=== PATIENT | female | born 1980 | race African-American/Black ===

== ENCOUNTER 2020-07-05 17:42 | Outpatient (CLI) | payer OTHER | END 2020-07-05 17:43 | disposition critical access hospital (66) | LOC: EMS 17:42 | PROVIDERS: ATTEND Surgery | DX: R20.0 Anesthesia of skin (principal); R51.9 Headache, unspecified | CPT/HCPCS: A0425; A0429 ==

== ENCOUNTER 2020-07-05 18:09 | Emergency (ER) | payer OTHER ==
--- NOTE | 2020-07-05 18:39 | ED Physician Documentation ---
History of Present Illness - Stated complaint Stated Complaint: L SIDE NUMBNESS - Chief complaint Chief Complaint: Neuro - History obtained from History obtained from: Patient - History of Present Illness Timing: Enter time (symptoms began at 5 pm) - Additonal information Additional information: 40-year-old female presents to the emergency department for evaluation of acute onset headache with left-sided weakness and numbness. Symptoms began at 5 PM. Patient reports that she was cooking chicken in the kitchen felt a sudden headache and then began to feel fullness in her face left arm and left leg. She does have a history of hypertension but currently untreated secondary to lack of refills. She did take a cannabis gummy which was new for her. She denies diplopia ,abdominal pain, chest pain, or shortness of breath. She has no personal history of CVA or stroke but there is a strong FH of CVA/CAD. Review of Systems Constitutional: reports: Reviewed and negative Eyes: denies: Loss of vision, Decreased vision, Photophobia Ears: reports: Reviewed and negative Throat: reports: Reviewed and negative Cardiac: reports: Reviewed and negative Respiratory: reports: Reviewed and negative GI: reports: Reviewed and negative : reports: Reviewed and negative Skin: reports: Reviewed and negative Musculoskeletal: reports: Reviewed and negative Neurologic: reports: Focal weakness, Numbness, Headache. denies: Difficulty speaking, Near syncope, Syncope, Confused, Altered mental status, Head injury, LOC Psychiatric: reports: Reviewed and negative PD PAST MEDICAL HISTORY - Present Medications Home Medications: Ambulatory Orders Medication Instructions Recorded Confirmed Bictegrav/Emtricit/Tenofov Ala 1 each PO 07/05/20 07/05/20 [Biktarvy 50-200-25 mg Tablet] Montelukast [Singulair] 10 mg PO QPM 07/05/20 07/05/20 - Allergies Allergies/Adverse Reactions: Allergies Allergy/AdvReac Type Severity Reaction Status Date / Time iodine Allergy Hives Verified 07/05/20 20:30 PD ED PE EXPANDED - General General: Alert, No acute distress - Neck Neck: Supple w/out meningeal sx. No: Adenopathy - Cardiac Cardiac: Tachy, Radial strong equal, Pedal strong equal, Cap refill < 2 sec. No: Abnormal Rate, Murmur Present - Respiratory Respiratory: Clear to ausultation sunita. No: Distress, Labored - Abdomen Abdomen: Normal Bowel sounds. No: Tender to palpation - Derm Derm: Normal color, Warm and dry. No: Rash, Petecchiae, Purpura - Extremities Extremities: Normal, Pedal edema bilateral. No: Deformity, Tenderness - Neuro Neuro: Alert and Oriented X 3, Abnormal sensation (left face numbness), Normal finger nose (dysarthria with left arm; weakness left arm,left leg. Pronator drift left arm), Normal speech. No: Nystagmus - GCS Eye Opening: Spontaneous Motor: Obeys Commands Verbal: Oriented Total: 15 Results - Vitals Vitals: Vital Signs - 24 hr 07/05/20 07/05/20 07/05/20 18:12 19:36 19:52 Temperature 36.9 C Heart Rate 84 90 93 Respiratory 16 20 17 Rate Blood Pressure 160/90 H 155/96 H 157/91 H O2 Saturation 100 98 96 07/05/20 07/05/20 07/05/20 20:14 20:34 21:00 Temperature 36.8 C Heart Rate 90 89 93 Respiratory 19 17 18 Rate Blood Pressure 155/88 H 157/90 H 162/99 H O2 Saturation 97 95 100 Oxygen O2 Source Room air - EKG (time done) 1818 Rate: Rate (enter#) (100) Rhythm: Sinus tachycardia Cove: Normal Intervals: Normal NE QRS: Normal Ischemia: Non specific changes Compare to prior EKG: Old EKG unavailable Computer interpretation: Agree with computer - Labs Labs: Laboratory Tests 07/05/20 07/05/20 07/05/20 19:13 19:13 19:13 WBC 8.8 RBC 4.08 L Hgb 12.3 Hct 36.5 L MCV 89.5 MCH 30.1 MCHC 33.7 RDW 12.7 Plt Count 307 MPV 10.1 Neut # (Auto) 5.9 Lymph # (Auto) 2.2 Lake # (Auto) 0.6 Eos # (Auto) 0.0 Baso # (Auto) 0.0 Absolute Nucleated RBC 0.00 Nucleated RBC % 0.0 PT INR Sodium 134 L Potassium 3.3 L Chloride 100 L Carbon Dioxide 24 Anion Gap 10.0 BUN 12 Creatinine 0.8 Estimated GFR (MDRD) 96 Glucose 108 H Calcium 9.1 Total Bilirubin 0.6 AST 14 ALT 12 Alkaline Phosphatase 73 Troponin I High Sens < 2.3 L Total Protein 8.0 Albumin 4.0 Globulin 4.0 Albumin/Globulin Ratio 1.0 Lipase 24 Serum HCG, Qual Urine Color Urine Clarity Urine pH Ur Specific [place] Urine Protein Urine Glucose (UA) Urine Ketones Urine Occult Blood Urine Nitrite Urine Bilirubin Urine Urobilinogen Ur Leukocyte Esterase Urine RBC Urine WBC Ur Squamous Epith Cells Urine Bacteria Ur Microscopic Review Urine Culture Comments Urine HCG, Qual Nasal Adenovirus (PCR) Nasal B. parapertussis DNA (PCR) Nasal Coronavir 229E PCR Nasal Coronavir HKU1 PCR Nasal Coronavir NL63 PCR Nasal Coronavir OC43 PCR Nasal Enterovir/Rhinovir PCR Nasal Influenza B PCR Nasal Influenza A PCR Nasal Parainfluen 1 PCR Nasal Parainfluen 2 PCR Nasal Parainfluen 3 PCR Nasal Parainfluen 4 PCR Nasal RSV (PCR) Nasal B.pertussis DNA PCR Nasal C.pneumoniae (PCR) Eliu Human Metapneumo PCR Nasal M.pneumoniae (PCR) Nasal SARS-CoV-2 (PCR) Urine Opiates Screen Ur Oxycodone Screen Urine Methadone Screen Ur Propoxyphene Screen Ur Barbiturates Screen Ur Tricyclics Screen Ur Phencyclidine Scrn Ur Amphetamine Screen U Methamphetamines Scrn U Benzodiazepines Scrn Urine Cocaine Screen U Cannabinoids Screen 07/05/20 07/05/20 07/05/20 19:13 19:13 19:30 WBC RBC Hgb Hct MCV MCH MCHC RDW Plt Count MPV Neut # (Auto) Lymph # (Auto) Lake # (Auto) Eos # (Auto) Baso # (Auto) Absolute Nucleated RBC Nucleated RBC % PT 12.6 INR 1.1 Sodium Potassium Chloride Carbon Dioxide Anion Gap BUN Creatinine Estimated GFR (MDRD) Glucose Calcium Total Bilirubin AST ALT Alkaline Phosphatase Troponin I High Sens Total Protein Albumin Globulin Albumin/Globulin Ratio Lipase Serum HCG, Qual NEGATIVE Urine Color LIGHT YELLOW Urine Clarity CLEAR Urine pH 6.0 Ur Specific [place] <=1.005 Urine Protein NEGATIVE Urine Glucose (UA) NEGATIVE Urine Ketones NEGATIVE Urine Occult Blood SMALL Urine Nitrite NEGATIVE Urine Bilirubin NEGATIVE Urine Urobilinogen 0.2 (NORMAL) Ur Leukocyte Esterase NEGATIVE Urine RBC 6-10 H Urine WBC 4-5 Ur Squamous Epith Cells FEW Squamous Urine Bacteria None Seen Ur Microscopic Review INDICATED Urine Culture Comments NOT INDICATED Urine HCG, Qual Nasal Adenovirus (PCR) Nasal B. parapertussis DNA (PCR) Nasal Coronavir 229E PCR Nasal Coronavir HKU1 PCR Nasal Coronavir NL63 PCR Nasal Coronavir OC43 PCR Nasal Enterovir/Rhinovir PCR Nasal Influenza B PCR Nasal Influenza A PCR Nasal Parainfluen 1 PCR Nasal Parainfluen 2 PCR Nasal Parainfluen 3 PCR Nasal Parainfluen 4 PCR Nasal RSV (PCR) Nasal B.pertussis DNA PCR Nasal C.pneumoniae (PCR) Eliu Human Metapneumo PCR Nasal M.pneumoniae (PCR) Nasal SARS-CoV-2 (PCR) Urine Opiates Screen NEGATIVE Ur Oxycodone Screen NEGATIVE Urine Methadone Screen NEGATIVE Ur Propoxyphene Screen NEGATIVE Ur Barbiturates Screen NEGATIVE Ur Tricyclics Screen NEGATIVE Ur Phencyclidine Scrn NEGATIVE Ur Amphetamine Screen NEGATIVE U Methamphetamines Scrn NEGATIVE U Benzodiazepines Scrn NEGATIVE Urine Cocaine Screen NEGATIVE U Cannabinoids Screen POSITIVE H 07/05/20 07/05/20 19:30 20:05 WBC RBC Hgb Hct MCV MCH MCHC RDW Plt Count MPV Neut # (Auto) Lymph # (Auto) Lake # (Auto) Eos # (Auto) Baso # (Auto) Absolute Nucleated RBC Nucleated RBC % PT INR Sodium Potassium Chloride Carbon Dioxide Anion Gap BUN Creatinine Estimated GFR (MDRD) Glucose Calcium Total Bilirubin AST ALT Alkaline Phosphatase Troponin I High Sens Total Protein Albumin Globulin Albumin/Globulin Ratio Lipase Serum HCG, Qual Urine Color Urine Clarity Urine pH Ur Specific [place] Urine Protein Urine Glucose (UA) Urine Ketones Urine Occult Blood Urine Nitrite Urine Bilirubin Urine Urobilinogen Ur Leukocyte Esterase Urine RBC Urine WBC Ur Squamous Epith Cells Urine Bacteria Ur Microscopic Review Urine Culture Comments Urine HCG, Qual NEGATIVE Nasal Adenovirus (PCR) NOT DETECTED Nasal B. parapertussis DNA (PCR) NOT DETECTED Nasal Coronavir 229E PCR NOT DETECTED Nasal Coronavir HKU1 PCR NOT DETECTED Nasal Coronavir NL63 PCR NOT DETECTED Nasal Coronavir OC43 PCR NOT DETECTED Nasal Enterovir/Rhinovir PCR NOT DETECTED Nasal Influenza B PCR NOT DETECTED Nasal Influenza A PCR NOT DETECTED Nasal Parainfluen 1 PCR NOT DETECTED Nasal Parainfluen 2 PCR NOT DETECTED Nasal Parainfluen 3 PCR NOT DETECTED Nasal Parainfluen 4 PCR NOT DETECTED Nasal RSV (PCR) NOT DETECTED Nasal B.pertussis DNA PCR NOT DETECTED Nasal C.pneumoniae (PCR) NOT DETECTED Eliu Human Metapneumo PCR NOT DETECTED Nasal M.pneumoniae (PCR) NOT DETECTED Nasal SARS-CoV-2 (PCR) NOT DETECTED Urine Opiates Screen Ur Oxycodone Screen Urine Methadone Screen Ur Propoxyphene Screen Ur Barbiturates Screen Ur Tricyclics Screen Ur Phencyclidine Scrn Ur Amphetamine Screen U Methamphetamines Scrn U Benzodiazepines Scrn Urine Cocaine Screen U Cannabinoids Screen - Rads (name of study) CTA head Radiology: Final report received (No occlusion or flow-limiting stenosis of the major intracranial arterial circulation) CTA neck Radiology: Final report received (No evidence of flow-limiting stenosis, dissection or other significant abnormality of the carotid and vertebral systems) PD MEDICAL DECISION MAKING - ED course Complexity details: reviewed results, re-evaluated patient, considered di fferential, d/w patient ED course: 1844: 40-year-old female with a history of hypertension presents to the emergency department with sudden onset headache, left facial and arm numbness as well as left arm weakness. Symptoms began at 5 PM. She is within the stroke window protocol. Telestroke initiated. She denies any allergy history but states that contrast made her eyes puffy once. We will premedicate with 50 mg of Benadryl. Current Modified NIH stroke scale is 1 for pronator drift left arm. Blood glucose for EMS 106 mg/dl 1851: I have spoken with Dr. Nguyen neurologist with tele-stroke. Pending pt's return from CT scan 1919: Neurology recommends altepase administration. CT head without finding of bleed or flow limiting stenosis. Dr. Nguyen Recommend small dose of labetelol as DBP 90-105. 5 mg of labetalol ordered 1946: TPA bolus administerd. Infusion of remaining dose over 1 hour initiated at 1948TPA infusion in progress. Patient complains of headache not changed in intensity. She remains GCS of 15 with left sided weakness in arm and leg. No facial droop. Speech is fluid and clear. 2009: I have spken with civil laboratory technician at [facility] Dr. Brown who has accepted the patient on transfer to the ICU for q1 hour neuro checks. She remains alert, stable. NIH 1. Continues with left arm weakss. Fluid speech. BP stable. Appropriate COBRA paperwork completed. PT abel luna transported via ALS - Consults Consults: Consulted (name) (Heath Nguyen) Departure - Departure Disposition: 02 Transfer Acute Care Hosp Clinical Impression: Left-sided weakness, Left sided numbness Stroke Qualifiers: CVA mechanism: embolism Precerebral and cerebral artery: unspecified cerebral artery Qualified Code(s): I63.40 - Cerebral infarction due to embolism of unspecified cerebral artery
[2020-07-05] MEDS ORDERED: diphenhydrAMINE INJ 50 MG/ML VIAL IVP STA (18:40)
[2020-07-05] MEDS ORDERED: diphenhydrAMINE INJ 50 MG/ML VIAL ONE (18:52)
[2020-07-05] MEDS ORDERED: IOVERSOL 320 100 ML VIAL IVP ONE ×2 (19:07→20:06)
--- NOTE | 2020-07-05 19:08 | CT Report ---
PROCEDURE: ANGIO NECK W INDICATIONS: Left-sided facial droop, left-sided neck pain CONTRAST: IV CONTRAST: Optiray 320 ml: 80 PO CONTRAST: *NO PO CONTRAST TECHNIQUE: After the administration of intravenous contrast, 1.5 mm axial sections acquired from the aortic arch to the [place] of [place]. Coronal 3-D maximum intensity projection (MIP) and/or volume rendering ref ormats were then performed. For radiation dose reduction, the following was used: automated exposur e control, adjustment of mA and/or kV according to patient size. COMPARISON: None. FINDINGS: Image quality: Excellent. Normal three-vessel configuration of the aortic arch. Normal course, caliber, and contour of the wagner tid arteries without hemodynamic significant stenosis or evidence of acute vascular injury. The right vertebral artery is dominant. Both vertebral arteries are otherwise normal in course and caliber wit h no evidence of acute vascular injury or flow limiting stenosis. No acute finding in the included re gional soft tissues. IMPRESSION: No evidence of flow-limiting stenosis, dissection, or other significant abnormality of the carotid an d vertebral systems. The estimate of stenosis included in the report of the imaging study was calculated using the NASCET method. Reviewed by: Tenzin Chen MD on 07/05/2020 7:07 PM PST Approved by: Tenzin Chen MD on 07/05/2020 7:07 PM PST Station ID: [id number]
[2020-07-05] MEDS ORDERED: ALTEPLASE 90 MG in WATER FOR INJECTION,STERILE 100 ML IV STA (19:11)
--- NOTE | 2020-07-05 19:13 | CT Report ---
PROCEDURE: ANGIO HEAD W/WO INDICATIONS: Left-sided facial droop CONTRAST: IV CONTRAST: Optiray 320 ml: 80 PO CONTRAST: *NO PO CONTRAST TECHNIQUE: Precontrast 4.5 mm thick angled axial sections acquired from the foramen magnum to the vertex. Afte r the administration of intravenous contrast, 1 mm thick sections acquired through the [place] of [place] is. Postcontrast 4.5 mm thick sections then re-acquired from the foramen magnum to the vertex. 3-di mensional fadrkpl-mydhdacej-twqaidabvr (MIP) and/or volume rendering reformats were acquired of the c entral intracranial vasculature. For radiation dose reduction, the following was used: automated ex posure control, adjustment of mA and/or kV according to patient size. COMPARISON: None FINDINGS: Noncontrast CT images of the head demonstrate no evidence of acute intracranial hemorrhage, abnormal intra-axial fluid collection, mass effect or midline shift. The ventricles and basilar cisterns are p atent. There is no evidence of cerebral edema or CT evidence of acute large territory infarct. Region al extracranial soft tissues are within normal limits. The left vertebral artery is diminutive and appears to terminate in PICA, considering little to no fl ow to the basilar artery. Posterior circulation is otherwise patent and intact with no evidence of fl ow-limiting stenosis, aneurysm, or dissection. Distal internal carotid arteries are widely patent wit h no evidence of flow-limiting stenosis or occlusion. Normal branch configuration of the anterior and middle cerebral arteries with no flow-limiting stenosis or occlusion identified. IMPRESSION: No occlusion or flow-limiting stenosis of the major intracranial arterial circulation. Reviewed by: Tenzin Chen MD on 07/05/2020 7:11 PM PST Approved by: Tenzin Chen MD on 07/05/2020 7:11 PM PST Station ID: [id number]
[2020-07-05] MEDS ORDERED: LABETALOL 20 MG/4 ML SYRINGE IVP STA (19:16)
[2020-07-05 19:21] LABS: BASOPHILS % (AUTO) 0.3 %; EOSINOPHILS % (AUTO) 0.3 %; HCT - HEMATOCRIT 36.5 % (37.0-47.0); HGB - HEMOGLOBIN 12.3 g/dL (12.0-16.0); LYMPHOCYTES # (AUTO) 2.2 10^3/uL (1.5-3.5); LYMPHOCYTES % (AUTO) 25.3 %; MEAN CORPUSCULAR HEMOGLOBIN 30.1 pg (27.0-31.0); MEAN CORPUSCULAR HGB CONC 33.7 g/dL (32.0-36.0); MEAN CORPUSCULAR VOLUME 89.5 fL (81.0-99.0); MEAN PLATELET VOLUME 10.1 fL (7.9-10.8); MONOCYTES # (AUTO) 0.6 10^3/uL (0.0-1.0); MONOCYTES % (AUTO) 6.5 %; NEUTROPHILS # (AUTO) 5.9 10^3/uL (1.5-6.6); NEUTROPHILS % (AUTO) 67.3 %; PLT - PLATELET COUNT 307 10^3/uL (130-450); RED BLOOD COUNT 4.08 10^6/uL (4.20-5.40); RED CELL DISTRIBUTION WIDTH 12.7 % (12.0-15.0); WHITE BLOOD COUNT 8.8 x10^3/uL (4.8-10.8)
[2020-07-05] MEDS ORDERED: ALTEPLASE 100 MG VIAL ONE (19:26)
[2020-07-05] MEDS ORDERED: LABETALOL 20 MG/4 ML SYRINGE IVP ONE (19:27)
[2020-07-05 19:32] LABS: INR 1.1 (0.8-1.2); PT - PROTHROMBIN TIME 12.6 secs (9.9-12.6)
[2020-07-05 19:33] LABS: MUDS CUTOFF CONCENTRATIONS CUTOFF CONC BELOW:
[2020-07-05 19:37] LABS: BILIRUBIN,TOTAL 0.6 mg/dL (0.2-1.0); CALCIUM 9.1 mg/dL (8.5-10.3); CREATININE 0.8 mg/dL (0.4-1.0); POTASSIUM 3.3 mmol/L (3.5-5.0)
[2020-07-05 19:38] LABS: HCG UR QUAL NEGATIVE
[2020-07-05 19:40] LABS: BILIRUBIN,URINE NEGATIVE (NEGATIVE); CLARITY,URINE CLEAR (CLEAR); GLUCOSE, URINE (UA) NEGATIVE (NEGATIVE); KETONES,URINE (UA) NEGATIVE (NEGATIVE); LEUKOCYTE ESTERASE, URINE NEGATIVE (NEGATIVE); NITRITE,URINE NEGATIVE (NEGATIVE); OCCULT BLOOD,URINE SMALL (NEGATIVE); PROTEIN,URINE NEGATIVE (NEGATIVE); UROBILINOGEN,URINE 0.2 (NORMAL) E.U./dL (NORMAL)
[2020-07-05 19:43] LABS: AMPHETAMINE SCREEN,URINE NEGATIVE (NEGATIVE); BARBITURATE SCREEN,UR NEGATIVE (NEGATIVE); BENZODIAZEPINES SCREEN, URINE NEGATIVE (NEGATIVE); COCAINE SCREEN URINE NEGATIVE (NEGATIVE); METHADONE SCREEN, URINE NEGATIVE (NEGATIVE); METHAMPHETAMINES SCREEN, URINE NEGATIVE (NEGATIVE); OPIATE SCREEN, URINE NEGATIVE (NEGATIVE); OXYCODONE SCREEN, URINE NEGATIVE (NEGATIVE); PROPOXYPHENE SCREEN, URINE NEGATIVE (NEGATIVE); THC CANNABINOID SCREEN, URINE POSITIVE (NEGATIVE); TRICYCLIC ANTIDEPRESSANT,URINE NEGATIVE (NEGATIVE)
[2020-07-05 19:49] LABS: HCG,QUALITATIVE BLOOD NEGATIVE
[2020-07-05 19:50] LABS: BACTERIA,URINE None Seen /HPF (None Seen); SQUAMOUS EPITHELIAL CELL,UR FEW Squamous (<= Few)
[2020-07-05 21:02] LABS: B. PARAPERTUSSIS- RESP PCR PAN NOT DETECTED; B. PERTUSSIS- RESP PCR PANEL NOT DETECTED; C. PNEUMONIAE- RESP PCR PANEL NOT DETECTED; CORONAVIRUS 229E-RESP PCR NOT DETECTED; CORONAVIRUS HKU1-RESP PCR NOT DETECTED; CORONAVIRUS NL63-RESP PCR NOT DETECTED; CORONAVIRUS OC43-RESP PCR NOT DETECTED; HUMAN METAPNEUMOVIRUS NOT DETECTED; INFLUENZA A- RESP PCR PANEL NOT DETECTED; INFLUENZA B - RESP PCR PANEL NOT DETECTED; M. PNEUMONIAE- RESP PCR PANEL NOT DETECTED; PARAINFLUENZA VIRUS 1 NOT DETECTED; PARAINFLUENZA VIRUS 2 NOT DETECTED; PARAINFLUENZA VIRUS 3 NOT DETECTED; PARAINFLUENZA VIRUS 4 NOT DETECTED; RHINOVIRUS/ENTEROVIRUS NOT DETECTED; RSV- RESP PCR PANEL NOT DETECTED; SARS-CoV-2 -RESP PCR PANEL NOT DETECTED
[2020-07-05] MEDS ORDERED: fentaNYL 100 MCG/2 ML VIAL IVP STA ×2 (21:11→22:24)
[2020-07-05 23:00] VITALS: BP 155/89
== END 2020-07-05 22:52 | disposition short-term general hospital (02) ==
LOC: ED 18:09
DX: I63.40 Cerebral infarction due to embolism of unspecified cerebral artery (principal); R29.701 NIHSS score 1; T46.5X6A Underdosing of other antihypertensive drugs, initial encounter; Y63.6 Underdosing and nonadministration of necessary drug, medicament or biological substance; I10 Essential (primary) hypertension; Z20.828 Contact with and (suspected) exposure to other viral communicable diseases
CPT/HCPCS: 0202U; 36415; 70496; 70498; 80053; 80306; 81001; 81025; 83690; 84484; 84703; 85025; 85610; 93005; 96365; 96375; 96376; 99284; 99285; J1200; J2997; Q9967; 81003; 87086

== ENCOUNTER 2020-12-24 16:02 | Emergency (ER) | payer OTHER ==
[2020-12-24 16:24] VITALS: BP 152/90
[2020-12-24] MEDS ORDERED: BUFFERED LIDOCAINE 10 ML SYRINGE SUBQ STA (16:30)
[2020-12-24] MEDS ORDERED: TETANUS/DIPHTHERIA/PERTUSSIS 0.5 ML SYRINGE IM ONE (16:30)
--- NOTE | 2020-12-24 16:42 | ED Physician Documentation ---
PD HPI LOWER EXT INJURY - Stated complaint Stated Complaint: LEFT LEG INJURY - Chief complaint Chief Complaint: Laceration - History obtained from History obtained from: Patient (She works at a [email or web address] locally. She accidentally kind of ran into a metal edge and has a laceration on the left knee. No other injuries. Tetanus is up-to-date.) Review of Systems Constitutional: reports: Reviewed and negative Eyes: reports: Reviewed and negative Ears: reports: Reviewed and negative Nose: reports: Reviewed and negative PD PAST MEDICAL HISTORY - Past Medical History Cardiovascular: Hypertension Neuro: Migraines Psych: Anxiety Derm: Eczema - Past Surgical History Past Surgical History: Yes - Present Medications Home Medications: Ambulatory Orders Medication Instructions Recorded Confirmed Bictegrav/Emtricit/Tenofov Ala 1 each PO 07/05/20 07/05/20 [Biktarvy 50-200-25 mg Tablet] Montelukast [Singulair] 10 mg PO QPM 07/05/20 07/05/20 - Allergies Allergies/Adverse Reactions: Allergies Allergy/AdvReac Type Severity Reaction Status Date / Time iodine Allergy Hives Verified 12/24/20 16:24 - Social History Does the pt smoke?: No Smoking Status: Never smoker Does the pt drink ETOH?: Yes - Immunizations Immunizations are current?: Yes PD ED PE NORMAL - Vitals Vital signs reviewed: Yes - General General: Alert and oriented X 3, No acute distress - HEENT HEENT: PERRL, EOMI - Extremities Extremities: Other (2 cm V-shaped laceration on the anterior left knee into subcutaneous tissue but no deeper.) - Neuro Neuro: Alert and oriented X 3, Normal speech Results - Vitals Vitals: Vital Signs - 24 hr 12/24/20 16:22 Temperature 37.2 C Heart Rate 91 Respiratory 16 Rate Blood Pressure 152/90 H O2 Saturation 98 Oxygen O2 Source Room air Procedures - Laceration (location) Left knee Length in cm: 2 Wound type: Stellate, Irregular, Flap, Into subcut fat Neurovascular status: Sensory intact, Motor intact, Vascular intact Tendon involvement: Tendon intact Anesthesia: Lidocaine 1%, With bicarb Wound preparation: Irrigated copiously NS Skin layer closure: Nylon, Interrupted, Size #-0 - enter number (4-0), Sutures - enter # (7) Other: Patient tolerated well, No complications, Neurovascular intact, Tetanus booster given Departure - Departure Disposition: 01 Home, Self Care Clinical Impression: Laceration of left knee Qualifiers: Encounter type: initial encounter Qualified Code(s): S81.012A - Laceration without foreign body, left knee, initial encounter Condition: Good Record reviewed to determine appropriate education?: Yes Instructions: ED Laceration All Comments: Come back for any signs of infection which would include: Redness, swelling, drainage, increased pain, or fevers. You can wash it soap and water. Keep it covered and moist with bacitracin ointment which is available over the counter; avoid neosporin. Follow-up with your physician in 10-14 days for suture removal. Forms: Activity restrictions
== END 2020-12-24 17:24 | disposition home or self-care (01) ==
LOC: ED 16:02
DX: S81.012A Laceration without foreign body, left knee, initial encounter (principal); W26.8XXA Contact with other sharp object(s), not elsewhere classified, initial encounter; Y99.0 Civilian activity done for income or pay; I10 Essential (primary) hypertension; Z23 Encounter for immunization
CPT/HCPCS: 12001; 90471; 99282; 99283

== ENCOUNTER 2021-01-10 11:22 | Emergency (ER) | payer OTHER ==
[2021-01-10 11:34] VITALS: BP 142/82
--- NOTE | 2021-01-10 11:36 | ED Physician Documentation ---
PD HPI WOUND RECHECK - Stated complaint Stated Complaint: SUTURE REMOVAL - Chief complaint Chief Complaint: General - Histroy obtained from History obtained from: Patient - History of Present Illness Location: Left Lower Extremity (anterior knee) Timing - onset: How many weeks ago (2) Associated symptoms: No: Fever, Redness, Swelling Recently seen: Emergency Dept (knee lac sutured in ER without problems and has been healing well without infection.) Review of Systems Constitutional: denies: Fever, Chills Skin: denies: Rash PD PAST MEDICAL HISTORY - Past Medical History Cardiovascular: Hypertension Neuro: Migraines Psych: Anxiety Derm: Eczema - Past Surgical History Past Surgical History: Yes - Present Medications Home Medications: Ambulatory Orders Medication Instructions Recorded Confirmed Bictegrav/Emtricit/Tenofov Ala 1 each PO 07/05/20 07/05/20 [Biktarvy 50-200-25 mg Tablet] Montelukast [Singulair] 10 mg PO QPM 07/05/20 07/05/20 - Allergies Allergies/Adverse Reactions: Allergies Allergy/AdvReac Type Severity Reaction Status Date / Time iodine Allergy Hives Verified 01/10/21 11:34 - Social History Does the pt smoke?: No Smoking Status: Never smoker Does the pt drink ETOH?: Yes Does the pt have substance abuse?: No - Immunizations Immunizations are current?: Yes PD ED PE NORMAL - Vitals Vital signs reviewed: Yes - General General: Alert and oriented X 3, No acute distress, Well developed/nourished - Extremities Extremities: Other (left anterior knee with sutured wound, well healing, without signs of infection. ) - Neuro Neuro: Alert and oriented X 3, No motor deficit, No sensory deficit Results - Vitals Vitals: Vital Signs - 24 hr 01/10/21 11:32 Temperature 36.1 C L Heart Rate 79 Respiratory 16 Rate Blood Pressure 142/82 H O2 Saturation 100 Oxygen O2 Source Room air PD MEDICAL DECISION MAKING - ED course Complexity details: considered differential, d/w patient Departure - Departure Disposition: 01 Home, Self Care Clinical Impression: Encounter for removal of sutures Condition: Stable Record reviewed to determine appropriate education?: Yes Instructions: ED Wound Check Sutr Remove No Infec Discharge Date/Time: 01/10/21 12:06
== END 2021-01-10 12:06 | disposition home or self-care (01) ==
LOC: ED 11:22
DX: S81.012D Laceration without foreign body, left knee, subsequent encounter (principal); X58.XXXD Exposure to other specified factors, subsequent encounter; I10 Essential (primary) hypertension
CPT/HCPCS: 99282